=== PATIENT | female | born 1975 | race Caucasian/White ===

== ENCOUNTER 2017-09-06 13:22 | Emergency (ER) | payer BC, OTHER ==
[~2017-09-06] VITALS: Ht 154.9 cm; Wt 69.0 kg
[~2017-09-06 13:22] MED LIST: MECL-62 PO
[2017-09-06 13:25] VITALS: BP 139/72; PULSE 78; RESP 14; TEMP 98.1; O2SAT 98
[2017-09-06 13:42] LABS: BILIRUBIN, URINE NEG (NEG); BLOOD, URINE NEG (NEG); GLUCOSE,URINE NEG (NEG); KETONE, URINE NEG (NEG); NITRITE,URINE NEG (NEG); URINE LEUKOCYTE ESTERASE NEG (NEG)
[2017-09-06 13:54] LABS: URINE COLOR YELLOW (YELLW/STRAW)
[2017-09-06 13:57] LABS: BACTERIA, URINE OCC /hpf
--- NOTE | 2017-09-06 14:54 | PD ---
HPI Chief Complaint: Flank/Kidney Pain Time Seen by Provider: 14:53 Travel History International Travel<30 days: No Contact w/Intl Traveler<30days: No Traveled to known affect area: No History of Present Illness HPI This 42-year-old female says he had some suprapubic discomfort earlier today. Today she then developed some flank pain. Today while urinating she got very lightheaded and thought she was going to pass out. Been having swelling of her feet for several months. It seems to be getting worse. Whenever she stands on them they get very swollen. She does get short of breath with minimal exertion she has had a tubal ligation in the past. PFSH Past Medical History Asthma: Yes (HX OF) Blood Disorders: No Cancer: No Cardiovascular Problems: No Diabetes: No Diminished Hearing: No Glaucoma: No Hepatitis: No Hiatal Hernia: No Hypertension: Yes (HX) Reproductive: Yes ([employer] CYSTS) Respiratory: No Immunizations Current: Yes Migraines: Yes (HX OF) Thyroid Disease: No ?: Not LMP: 08/21/17 : 4 Para: 3 Tubal Ligation: Yes Past Surgical History Section: Yes (X3) Gynecologic Surgery: Yes ( X 3) Oral Surgery: Yes (WISDOM TEETH) Tonsillectomy: Yes Other Surgery: Yes Social History Alcohol Use: No Tobacco Use: No Substance Use: No Allergies-Medications (Allergen,Severity, Reaction): Coded Allergies: No Known Allergies (Verified Adverse Reaction, Unknown, 09/06/17) Reported Meds & Prescriptions Reported Meds & Active Scripts Active Meclizine Hcl (Meclizine HCl) 25 Mg Tab 25 Mg PO TID PRN Review of Systems General / Constitutional: No: Fever, Chills Eyes: No: Diploplia, Blurred Vision HENT: No: Headaches, Vertigo Cardiovascular: No: Chest Pain or Discomfort, Palpitations Respiratory: No: Cough, Shortness of Breath Gastrointestinal: Positive: Nausea, No: Vomiting Genitourinary: Positive: Flank Pain, No: Decreased Urinary Output, Pelvic Pain Musculoskeletal: No: Myalgias Skin: No Rash, No Itching Neurologic: No: Weakness Physical Exam Narrative GENERAL: Well-developed female SKIN: Focused skin assessment warm/dry. HEAD: Atraumatic. Normocephalic. EYES: Pupils equal and round. No scleral icterus. No injection or drainage. ENT: No nasal bleeding or discharge. Mucous membranes pink and moist. NECK: Trachea midline. No JVD. CARDIOVASCULAR: Regular rate and rhythm. No murmur appreciated. RESPIRATORY: No accessory muscle use. Clear to auscultation. Breath sounds equal bilaterally. GASTROINTESTINAL: Abdomen soft, non-tender, nondistended. Hepatic and splenic margins not palpable. MUSCULOSKELETAL: No obvious deformities. No clubbing. No cyanosis. Trace edema. NEUROLOGICAL: Awake and alert. No obvious cranial nerve deficits. Motor grossly within normal limits. Normal speech. PSYCHIATRIC: Appropriate mood and affect; insight and judgment normal. Data Data Last Documented VS Vital Signs Date Time Temp Pulse Resp B/P (MAP) Pulse Ox O2 Delivery O2 Flow Rate FiO2 09/06/17 13:25 98.1 78 14 139/72 (94) 98 Orders Orders Urinalysis - C+S If Indicated (09/06/17 13:29) Ed Urine Pregnancytest Poc (09/06/17 13:36) Urine Culture (09/06/17 13:30) Complete Blood Count With Diff (09/06/17 14:53) Comprehensive Metabolic Panel (09/06/17 14:53) Chest, Single Ap (09/06/17 14:53) Labs Laboratory Tests Test 09/06/17 13:30 Urine Color YELLOW Urine Turbidity HAZY Urine pH 6.0 Urine Specific [place] 1.017 Urine Protein NEG mg/dL Urine Glucose (UA) NEG mg/dL Urine Ketones NEG mg/dL Urine Occult Blood NEG Urine Nitrite NEG Urine Bilirubin NEG Urine Leukocyte Esterase NEG Urine WBC 9-14 /hpf Urine Squamous Epithelial Cells 6-8 /hpf Urine Bacteria OCC /hpf Microscopic Urinalysis Comment CULTURE INDICATED MDM Medical Decision Making Medical Screen Exam Complete: Yes Emergency Medical Condition: Yes Medical Record Reviewed: Yes Differential Diagnosis Differential includes hypoalbuminemia, CHF, UTI, nephrotic syndrome Narrative Course Urine does show some infection with 9-14 white cells Shaggy Cortes MD Sep 06, 2017 14:54
--- NOTE | 2017-09-06 15:18 | RADRPT ---
EXAM DATE/TIME: 09/06/2017 15:03 [facility] COMPARISON: No previous studies available for comparison. INDICATIONS : Shortness of breath. MEDICAL HISTORY : None. SURGICAL HISTORY : None. ENCOUNTER: Initial ACUITY: 1 day PAIN SCORE: 0/10 LOCATION: Bilateral chest FINDINGS: A single view of the chest demonstrates the lungs to be symmetrically aerated without evidence of mas s, infiltrate or effusion. The cardiomediastinal contours are unremarkable. Osseous structures are intact. CONCLUSION: No acute cardiac pulmonary process. Ricco Paredes MD on September 06, 2017 at 15:14 Board Certified Radiologist. This report was verified electronically.
[2017-09-06 15:20] LABS: AUTOMATED NEUTROPHIL # 6.8 TH/MM3 (1.8-7.7); BASOPHIL % 0.2 % (0.0-2.0); EOSINOPHIL # 0.1 TH/MM3 (0-0.4); EOSINOPHIL % 0.6 % (0.0-4.0); HEMATOCRIT 28.3 % (35.0-46.0); HEMOGLOBIN 8.7 GM/DL (11.6-15.3); LYMPH % 13.5 % (9.0-44.0); LYMPHOCYTE # 1.2 TH/MM3 (1.0-4.8); MEAN CORPUSCULAR HEMOGLOBIN 22.7 PG (27.0-34.0); MEAN CORPUSCULAR HGB CONC 30.6 % (32.0-36.0); MEAN PLATELET VOLUME 8.7 FL (7.0-11.0); MONO % 5.3 % (0.0-8.0); MONOCYTE # 0.5 TH/MM3 (0-0.9); NEUT % 80.4 % (16.0-70.0); PLATELET COUNT 185 TH/MM3 (150-450); RED BLOOD COUNT 3.82 MIL/MM3 (4.00-5.30); RED CELL DISTRIBUTION WIDTH 15.9 % (11.6-17.2); WHITE BLOOD COUNT 8.6 TH/MM3 (4.0-11.0)
[2017-09-06 15:29] LABS: CHLORIDE 104 MEQ/L (98-107); SODIUM (NA) 138 MEQ/L (136-145)
[2017-09-06 15:32] LABS: CALCIUM 8.9 MG/DL (8.5-10.1)
[2017-09-06 15:33] LABS: ALBUMIN 3.8 GM/DL (3.4-5.0); BICARBONATE 26.6 MEQ/L (21.0-32.0); BLOOD UREA NITROGEN 11 MG/DL (7-18); GLUCOSE,RANDOM 102 MG/DL (74-106)
[2017-09-06 15:36] LABS: ALT (GPT) 17 U/L (10-53); AST (GOT) 13 U/L (15-37); CREATININE 0.52 MG/DL (0.50-1.00); GLOMERULAR FILTRATION RATE 130 ML/MIN (>89)
[2017-09-06 15:38] LABS: TOTAL BILIRUBIN ADULT 0.2 MG/DL (0.2-1.0); TOTAL PROTEIN 7.9 GM/DL (6.4-8.2)
[2017-09-06 15:39] LABS: ALKALINE PHOSPHATASE 65 U/L (45-117)
[2017-09-06] MEDS ORDERED: SODIUM CHLORID 0.9% 500 ML INJ 500 ML IV ONE (15:45)
[2017-09-06] MEDS ORDERED: POTASSIUM CHLORIDE 20 MEQ CONTROLLED RELEASE TAB PO ONE (15:45)
[2017-09-06] MEDS ORDERED: FERR325T18 PO (15:47)
[2017-09-06] MEDS ORDERED: BACT800T5 PO (15:47)
[2017-09-06 15:52] LABS: OVALOCYTES 1+ (NORMAL); STOMATOCYTES 1+ (NORMAL)
== END 2017-09-06 16:05 | disposition home or self-care (01) ==
LOC: PHED 13:22
DX: N39.0 Urinary tract infection, site not specified (principal); D64.9 Anemia, unspecified; N92.0 Excessive and frequent menstruation with regular cycle
CPT/HCPCS: 71045; 80053; 81001; 84703; 85025; 87077; 87086; 87186; 99284